=== PATIENT | male | born 1935 | race Caucasian/White ===

== ENCOUNTER → 2022-04-22 | Emergency (ER) | payer OTHER ==
[2022-04-22 09:47] LABS: #Basophils 0.1 thou/uL (0.0-0.2); #Eosinphils 0.1 thou/uL (0.0-0.7); #Lymphocytes 1.6 thou/uL (1.20-3.40); #Neutrophils 5.7 thou/uL (1.40-6.50); %Basophils 1.4 % (0.0-1.0); %Eosinophils 1.1 % (0.0-10.0); %Lymphocytes 18.6 % (21.0-51.0); %Monocytes 11.6 % (0.0-10.0); %Neutrophils 67.4 % (42.0-75.0); Hemoglobin 12.3 g/dL (14.0-18.0); Mean Corpuscular HGB CONC 32.6 g/dL (32.0-36.0); Mean Corpuscular Hemoglobin 32.5 pg (27.0-31.0); Mean Corpuscular Volume 99.9 fL (78.0-98.0); Mean Platelet Volume 8.6 fL (7.4-10.4); Platelet Count 184 thou/uL (130-400); RBC Distribution Width 13.8 % (11.5-14.5); Red Blood Cell (RBC) Count 3.78 mill/uL (4.70-6.10); White Blood Cell (WBC) Count 8.5 thou/uL (4.8-10.8)
[2022-04-22 09:54] LABS: INR-International Normal Ratio 1.5; PTT 39.4 sec (22.9-36.1); Prothrombin Time 18.5 sec (12.0-14.7)
[2022-04-22 10:02] LABS: ALT (SGPT) 21 U/L (8-55); AST (SGOT) 18 U/L (5-34); Albumin 3.6 g/dL (3.4-4.8); Alkaline Phosphatase 69 U/L (40-110); Anion Gap 14 mmol/L (10-20); BUN (Urea Nitrogen) 13 mg/dL (8.4-25.7); Bilirubin, Total 0.8 mg/dL (0.2-1.2); Calc. Creatinine Clearance 0 mL/min (70-130); Calcium 9.5 mg/dL (7.8-10.44); Carbon Dioxide 25 mmol/L (23-31); Chloride 104 mmol/L (98-107); Estimated GFR 73; Globulin 3.7 g/dL (2.4-3.5); Glucose 184 mg/dL (83-110); Magnesium 1.8 mg/dL (1.6-2.6); Potassium 4.2 mmol/L (3.5-5.1); Protein, Total 7.3 g/dL (5.8-8.1); Sodium 139 mmol/L (136-145)
[2022-04-22 12:55] LABS: SARS-CoV-2 NAA Rapid Test Not Detected (NotDetected)
== END ==
LOC: BURERS 08:58
DX: I45.5 Other specified heart block (principal); I10 Essential (primary) hypertension; E11.42 Type 2 diabetes mellitus with diabetic polyneuropathy; Z79.01 Long term (current) use of anticoagulants; Z79.899 Other long term (current) drug therapy; Z20.822 Contact with and (suspected) exposure to COVID-19
CPT/HCPCS: 70450; 71045; 80053; 83605; 83735; 83880; 84484; 85025; 85610; 85730; 93005; 94760; U0002

== ENCOUNTER 2022-06-23 13:55 | Emergency (ER) | payer OTHER | END 2022-06-23 15:03 | disposition home or self-care (01) | LOC: BURERS 13:55 | DX: S51.812A Laceration without foreign body of left forearm, initial encounter (principal); I48.91 Unspecified atrial fibrillation; E78.2 Mixed hyperlipidemia; I10 Essential (primary) hypertension; X58.XXXA Exposure to other specified factors, initial encounter | CPT/HCPCS: 12001 ==

== ENCOUNTER 2022-11-28 10:37 | Emergency (ER) | payer OTHER ==
[2022-11-28 11:09] LABS: #Basophils 0.1 thou/uL (0.0-0.2); #Eosinphils 0.1 thou/uL (0.0-0.7); #Monocytes 0.8 thou/uL (0.11-0.59); #Neutrophils 12.5 thou/uL (1.40-6.50); %Basophils 0.6 % (0.0-1.0); %Eosinophils 0.5 % (0.0-10.0); %Lymphocytes 6.9 % (21.0-51.0); %Monocytes 5.6 % (0.0-10.0); %Neutrophils 86.4 % (42.0-75.0); Hemoglobin 12.9 g/dL (14.0-18.0); Mean Corpuscular HGB CONC 33.7 g/dL (32.0-36.0); Mean Corpuscular Hemoglobin 34.7 pg (27.0-31.0); Mean Platelet Volume 9.5 fL (7.4-10.4); Platelet Count 191 10x3/uL (130-400); RBC Distribution Width 13.5 % (11.5-14.5); Red Blood Cell (RBC) Count 3.73 mill/uL (4.70-6.10); White Blood Cell (WBC) Count 14.5 10x3/uL (4.8-10.8)
[2022-11-28 11:27] LABS: ALT (SGPT) 16 U/L (8-55); AST (SGOT) 21 U/L (5-34); Albumin 3.9 g/dL (3.4-4.8); Alkaline Phosphatase 71 U/L (40-110); Anion Gap 14 mmol/L (10-20); BUN (Urea Nitrogen) 12 mg/dL (8.4-25.7); Bilirubin, Total 0.8 mg/dL (0.2-1.2); Calc. Creatinine Clearance 0 mL/min (70-130); Calcium 9.6 mg/dL (7.8-10.44); Carbon Dioxide 27 mmol/L (23-31); Chloride 101 mmol/L (98-107); Estimated GFR 74; Globulin 4.1 g/dL (2.4-3.5); Glucose 221 mg/dL (83-110); Potassium 4.5 mmol/L (3.5-5.1); Sodium 137 mmol/L (136-145)
[2022-11-28 11:30] LABS: MDiff Complete? YES; Macrocytosis SLIGHT = 6-15 cells (100X) (0-5/hpf); Platelet Morphology Comment Appears Adequate
[2022-11-28] MEDS ORDERED: Cephalexin 250 MG CAP ONE (11:51)
== END 2022-11-28 12:02 | disposition home or self-care (01) ==
LOC: BURERS 10:37
DX: L03.032 Cellulitis of left toe (principal); I10 Essential (primary) hypertension; E78.00 Pure hypercholesterolemia, unspecified
CPT/HCPCS: 36415; 80053; 85025; 86140

== ENCOUNTER 2023-03-10 20:14 | Emergency (ER) | payer MEDICARE, OTHER ==
[2023-03-10] MEDS ORDERED: Lidocaine Viscous Sol 2% 15 ml UD Cup ONE (20:51)
[2023-03-10] MEDS ORDERED: Mag-Al Plus 1200 MG/1200 MG/120 MG/30 ML UDCUP ONE (20:51)
[2023-03-10 21:07] LABS: #Basophils 0.1 thou/uL (0.0-0.2); #Eosinphils 0.2 thou/uL (0.0-0.7); #Lymphocytes 1.7 thou/uL (1.20-3.40); #Monocytes 0.6 thou/uL (0.11-0.59); #Neutrophils 4.5 thou/uL (1.40-6.50); %Basophils 1.4 % (0.0-1.0); %Eosinophils 2.3 % (0.0-10.0); %Lymphocytes 23.8 % (21.0-51.0); %Neutrophils 64.5 % (42.0-75.0); Hemoglobin 12.2 g/dL (14.0-18.0); Mean Corpuscular HGB CONC 31.7 g/dL (32.0-36.0); Mean Corpuscular Hemoglobin 32.8 pg (27.0-31.0); Mean Platelet Volume 7.3 fL (7.4-10.4); Platelet Count 212 10x3/uL (130-400); RBC Distribution Width 13.1 % (11.5-14.5); Red Blood Cell (RBC) Count 3.73 mill/uL (4.70-6.10); White Blood Cell (WBC) Count 6.9 10x3/uL (4.8-10.8)
[2023-03-10 21:23] LABS: ALT (SGPT) 18 U/L (8-55); AST (SGOT) 21 U/L (5-34); Albumin 3.6 g/dL (3.4-4.8); Alkaline Phosphatase 61 U/L (40-110); Anion Gap 12 mmol/L (10-20); BUN (Urea Nitrogen) 14 mg/dL (8.4-25.7); Bilirubin, Total 0.4 mg/dL (0.2-1.2); Calc. Creatinine Clearance 0 mL/min (70-130); Calcium 9.7 mg/dL (7.8-10.44); Carbon Dioxide 29 mmol/L (23-31); Chloride 102 mmol/L (98-107); Estimated GFR 82; Globulin 3.9 g/dL (2.4-3.5); Glucose 133 mg/dL (83-110); Lipase 21 U/L (8-78); Magnesium 1.9 mg/dL (1.6-2.6); Potassium 4.5 mmol/L (3.5-5.1); Protein, Total 7.5 g/dL (5.8-8.1); Sodium 138 mmol/L (136-145)
== END 2023-03-10 22:17 | disposition home or self-care (01) ==
LOC: BURERS 20:14
DX: R06.6 Hiccough (principal); E78.2 Mixed hyperlipidemia; I10 Essential (primary) hypertension; Z79.899 Other long term (current) drug therapy
CPT/HCPCS: 36415; 71045; 80053; 83690; 83735; 84484; 85025; 93005

== ENCOUNTER 2023-05-05 10:15 | Emergency (ER) | payer OTHER | END 2023-05-05 10:45 | disposition home or self-care (01) | LOC: BURERS 10:15 | DX: M62.81 Muscle weakness (generalized) (principal); E78.2 Mixed hyperlipidemia; I10 Essential (primary) hypertension; Z79.899 Other long term (current) drug therapy | CPT/HCPCS: 99283 ==

== ENCOUNTER 2023-08-01 14:32 | Emergency (ER) | payer OTHER ==
[2023-08-01] MEDS ORDERED: Lidocaine Viscous Sol 2% 15 ml UD Cup ONE (15:16)
[2023-08-01] MEDS ORDERED: Mag-Al Plus 1200 MG/1200 MG/120 MG/30 ML UDCUP ONE (15:16)
== END 2023-08-01 15:30 | disposition home or self-care (01) ==
LOC: BURERS 14:32
DX: R06.6 Hiccough (principal); R01.1 Cardiac murmur, unspecified; E78.00 Pure hypercholesterolemia, unspecified; E11.9 Type 2 diabetes mellitus without complications; I10 Essential (primary) hypertension; I48.91 Unspecified atrial fibrillation; Z79.84 Long term (current) use of oral hypoglycemic drugs; Z79.899 Other long term (current) drug therapy; Z79.82 Long term (current) use of aspirin

== ENCOUNTER 2023-08-01 21:55 | Emergency (ER) | payer OTHER ==
[2023-08-01] MEDS ORDERED: Milk Of Magnesia 30 ML UDCUP ONE (22:32)
[2023-08-01] MEDS ORDERED: Sucralfate 1 GM TAB ONE (22:32)
[2023-08-01] MEDS ORDERED: Metoclopramide HCl 10 MG TAB ONE (22:32)
== END 2023-08-01 23:54 | disposition home or self-care (01) ==
LOC: BURERS 21:55
DX: K21.9 Gastro-esophageal reflux disease without esophagitis (principal); R06.6 Hiccough; E11.9 Type 2 diabetes mellitus without complications; I10 Essential (primary) hypertension
CPT/HCPCS: 99283